=== PATIENT | female | born 1995 | race Caucasian/White ===

== ENCOUNTER 2024-12-13 08:15 | Emergency (ER) | payer OTHER, SELFPAY ==
--- NOTE | 2024-12-13 08:22 | ED_ITS ---
HPI - General Adult General Chief complaint: Abdominal Pain Stated complaint: abd pain tingling in hands Time Seen by Provider: 12/13/24 08:21 Source: patient, RN notes reviewed and old records reviewed Mode of arrival: ambulatory Limitations: no limitations History of Present Illness ED Provider: Lynne [facility] narrative: Patient is a 29-year-old female presenting to the emergency department with complaint of lower abdominal pain which began this morning as well as associated nausea and 1 episode of vomiting. She also complains of tingling to her extremities during her episode of pain. States pain has since resolved. States she feels her symptoms are likely due to menstrual cramps, is expecting her period to start today. Denies any dysuria, frequency or other urinary symptoms. Denies dizziness, lightheadedness, syncope or near syncope. Denies recent fevers. Denies history of abdominal surgeries. Denies any abnormal vaginal discharge or concern for STIs. MD complaint: abdominal pain Onset (ago): hour(s) Related Data Allergies Allergy/AdvReac Type Severity Reaction Status Date / Time No Known Allergies (No Known Allergy Verified 12/13/24 08:26 Allergies*) Review of Systems 2 Review of Systems: As per HPI Yes all other systems are reviewed and are negative Constitutional: Constitutional: Reports as per HPI [facility] Social History Social History Smoked in Last 30 Days: No Advance Directives: No Advance Directives Information Provided: No Do you have a plan to hurt others: No Plan Physical Exam ED Vital Signs: Vital Signs - 24 hr 12/13/24 08:23 12/13/24 08:27 12/13/24 09:39 Temperature 97.4 F Pulse Rate 75 72 Respiratory Rate 17 Blood Pressure 89/50 L 90/50 L 94/51 L Pulse Oximetry 100 Oxygen Delivery Method Room Air 12/13/24 10:44 12/13/24 10:44 12/13/24 10:45 Temperature Pulse Rate 61 74 79 Respiratory Rate Blood Pressure 90/38 L 86/53 L 85/46 L Pulse Oximetry Oxygen Delivery Method BMI result Body Mass Index 20.1 Vital signs have been reviewed and appear to be correct. Blood pressure low. Heart rate normal. Respiratory rate normal. Temperature normal. Oxygen saturation normal. Const General: cooperative, healthy appearing and no acute distress Nutritional Appearance: thin Orientation/consciousness: oriented to person, oriented to place, oriented to time and patient oriented x3 Limitations: no limitations HENMT Head: Yes normocephalic and Yes atraumatic Ears: external ears normal General nose exam: Normal external nose present Face and sinus: Yes face symmetric Mouth: oropharynx normal and moist mucous membranes Throat: Yes uvula midline Eyes Pupils: Equal, round and reactive pupils present Neck Neck: Yes normal visual inspection and Yes supple Resp Effort & Inspection: normal respiratory effort and able to speak in complete sentences Auscultation: clear to auscultation bilaterally Cardio Rate: regular rate Rhythm: regular rhythm Heart sounds: S1 normal heart sound present and S2 normal heart sound present GI Palpation (GI): Soft to palpation and nontender Auscultation: normoactive bowel sounds General: Yes no CVA tenderness Back/Spine/Pelvis Back: no CVA tenderness Skin General skin exam: elasticity normal and turgor normal Neuro General: oriented to person, oriented to place, oriented to time, patient oriented x3, moves all extremities, no focal motor deficits and CN's II-XI intact bilaterally Cranial nerves: Yes Equal, round and reactive pupils present Cognition (Neuro): normal cognition Extrem General: Yes full ROM, Yes no pedal edema and Yes no calf tenderness Psych Mental Status: mental status grossly normal Affect: normal affect Thought process: Normal thought process present Medications Administered Discontinued Medications Generic Name Dose Route Start Last Admin Trade Name John PRN Reason Stop Dose Admin Lactated Ringer's 1,000 mls @ 999 mls/hr 12/13/24 09:30 12/13/24 09:43 Lr IV 12/13/24 10:30 Not Given .Q1H1M [facility] Ketorolac Tromethamine 15 mg 12/13/24 09:33 12/13/24 09:43 Ketorolac Tromethamine 15 Mg/Ml Vial IVPUSH 12/13/24 09:34 Not Given ONCE ONE Ondansetron HCl 4 mg 12/13/24 09:29 12/13/24 09:43 Ondansetron Hcl 4 Mg/2 Ml Vial IVPUSH 12/13/24 09:30 Not Given ONCE ONE Medical Decision Making Medical Decision Making [facility] Narrative: Patient is a 29-year-old female presenting to the emergency department with complaint of lower abdominal pain which began this morning as well as associated nausea and 1 episode of vomiting. On exam patient is awake, A+Ox3, BP low, VS otherwise WNL, afebrile, normal neurological exam without focal deficits, physical exam findings as above. Patient reports that her BPs are typically low, denies any dizziness, lightheadedness, or near syncope. Given reported symptoms and physical exam findings, initial differential includes but is not limited to menstrual cramps, , ectopic. Unlikely ovarian torsion, TOA, appendicitis as pain has since resolved. Patient declining IV fluids, pain or nausea medication at this time. Labs unremarkable, negative HCG. Patient noted to have orthostatic intolerance on orthostatic vital signs. Results were discussed with patient and she continues to decline IV fluids, states she will focus on drinking additional p.o. fluids at home. She continues to deny any dizziness, lightheadedness. Feel she is stable for discharge home at this time. Do not feel abdominal imaging is indicated as patient does not have any abdominal tenderness and pain has resolved. Discussed with patient that her extremity tingling was likely due to hyperventilation related to pain, and patient corroborates that she was hyperventilating at the time. Advised Tylenol and ibuprofen as needed. Return precautions discussed at bedside. Patient verbalized understanding of and agreement with plan. Differential Diagnosis Differential Diagnoses: The differential diagnosis associated with the presentation includes As per [facility] Admission/Observation Consideration of admission/observation: Escalation of care including admission/observation considered Patient would have been admitted to the hospital had their clinical presentation warranted hospital admission. Lab Data [facility] Lab Attestation statement: I reviewed the patient's lab results. as per [facility] 12/13/24 08:50 12/13/24 08:50 Labs: Lab Results 12/13/24 12/13/24 Range/Units 08:50 08:51 WBC 3.9 L (4.8-10.8) X10*3/uL RBC 3.87 L (4.20-5.50) X10*6/uL Hgb 12.3 (12.0-16.0) g/dl Hct 35.0 L (37.0-47.0) % MCV 90.4 (80.0-98.0) fL MCH 31.8 (27.0-33.0) pg MCHC 35.1 H (31.0-35.0) g/dl RDW 12.5 (11.0-16.0) % Plt Count 171 (160-400) X10*3/uL MPV 9.2 L (9.4-12.3) fL Immature Gran % (Auto) 0.3 (0.0-0.4) % Neut % (Auto) 55.6 (45-73) % Lymph % (Auto) 34.9 (20-40) % [place] % (Auto) 5.9 (2-11) % Eos % (Auto) 2.8 (0-4) % Baso % (Auto) 0.5 (0-2) % Lymph # (Auto) 1.4 (1.2-4.9) X10*3/uL [place] # (Auto) 0.2 (0.1-1.2) X10*3/uL Eos # (Auto) 0.1 (0.0-0.4) X10*3/uL Baso # (Auto) 0.0 (0.0-0.2) X10*3/uL Abs Immat Gran (auto) 0.01 (0.00-0.03) X10*3/uL Absolute Neuts (auto) 2.2 (2.0-8.3) x10*3/uL Absolute Nucleated RBC 0.000 (0.0-0.012) X10*3/uL Nucleated RBC % (auto) 0.0 (0.0-0.2) /100WBC Sodium 140 (135-145) mmol/L Potassium 3.8 (3.3-5.1) mmol/L Chloride 110 H (96-108) mmol/L Carbon Dioxide 23 (22-29) mmol/L Anion Gap 11 L (12-20) BUN 10 (9-16) mg/dL Creatinine 0.67 (0.5-1.4) mg/dL Estim Creat Clear Calc 106.9 Estimated GFR > 60 Random Glucose 114 (60-115) mg/dL Calcium 8.7 (8.4-10.2) mg/dL Magnesium 1.9 (1.6-2.6) mg/dL Total Bilirubin 0.5 (0.0-1.0) mg/dL Direct Bilirubin 0.2 (0.0-0.5) mg/dL AST 19 (5-31) U/L ALT 17 (0-31) U/L Alkaline Phosphatase 51 (39-117) U/L Total Protein 6.5 (6.5-8.0) g/dL Albumin 4.5 (3.5-5.0) g/dL Lipase 24 (8-78) U/L Beta HCG, Quant < 2 mIU/mL Urine Color Yellow Urine Appearance Clear Urine pH 7.0 (5.0-9.0) Ur Specific [place] 1.025 (1.005-1.025) Urine Protein Negative (Neg-Trace) mg/dL Urine Glucose (UA) Negative (Negative) mg/dL Urine Ketones 15 (Negative) mg/dL Urine Blood Negative (Negative) Urine Nitrite Negative (Negative) Ur Leukocyte Esterase Negative (Negative) Urine RBC 0-2 (0-2) /HPF Urine WBC 0-5 (0-5) /HPF Ur Squamous Epith Cells 0-2 (0-2) /HPF Calcium Oxalate Crystal Present Urine Bacteria None Seen (None Seen) Hyaline Casts 0-2 (0-2) /LPF External Record Review External record reviewed: Inpatient record, Office record and Outpatient record Discharge Plan Discharge Clinical Impression: Abdominal pain Patient Disposition: Home, Self-Care Instructions: Abdominal Pain (ED), Hypotension (DC) Additional Instructions: You have been evaluated in the emergency department today for abdominal pain. Your evaluation did not show evidence of medical conditions requiring emergent intervention at this time. Your blood pressure was noted to be low in the emergency department and worsened with position changes, likely due to dehydration. We recommend that you drink adequate fluids, especially fluids containing electrolytes over the next few days. If you become dizzy or lightheaded with position changes you should return to the emergency department. Please schedule an appointment with your primary care physician. Return to the emergency department if you experience worsening or uncontrolled pain, fevers 100.4? F or greater, recurrent vomiting, inability to tolerate food or fluids by mouth, bloody stools or vomit, black or tarry stools, or any other concerning symptoms. Print Language: Andorran
[2024-12-13 08:23] VITALS: BP 89/50; PULSE 75; RESP 17; TEMP 36.3; O2SAT 100; BMI 20.1
[2024-12-13 08:27] VITALS: BP 90/50
[2024-12-13 08:54] LABS: MANUAL DIFF FLAG NO
[2024-12-13 08:56] LABS: Hematocrit 35.0 % (37.0-47.0); Hemoglobin 12.3 g/dl (12.0-16.0); Imm Gran Abs Auto 0.01 X10*3/uL (0.00-0.03); Imm Gran Pct Auto 0.3 % (0.0-0.4); Lymphocytes Absolute Auto 1.4 X10*3/uL (1.2-4.9); Mean Corpuscular HGB Conc 35.1 g/dl (31.0-35.0); Mean Corpuscular Hemoglobin 31.8 pg (27.0-33.0); Mean Corpuscular Volume 90.4 fL (80.0-98.0); NRBC Abs Auto 0.000 X10*3/uL (0.0-0.012); NRBC Pct Auto 0.0 /100WBC (0.0-0.2); Platelet Count 171 X10*3/uL (160-400); Red Blood Count 3.87 X10*6/uL (4.20-5.50); White Blood Count 3.9 X10*3/uL (4.8-10.8)
[2024-12-13 08:57] LABS: Appearance Urine Clear; Glucose Urine UA Negative (Negative); PH 7.0 (5.0-9.0); Specific Gravity - Urine 1.025 (1.005-1.025)
[2024-12-13 09:22] LABS: Alanine Aminotransferase 17 U/L (0-31); Albumin Level 4.5 g/dL (3.5-5.0); Alkaline Phosphatase 51 U/L (39-117); Anion Gap 11 (12-20); Aspartate Amino Transferase 19 U/L (5-31); Blood Urea Nitrogen 10 mg/dL (9-16); Calcium 8.7 mg/dL (8.4-10.2); Carbon Dioxide 23 mmol/L (22-29); Chloride 110 mmol/L (96-108); Creatinine Clr Calc Pharmacy 106.9; Estimated Glomerular Filt Rate > 60; Lipase 24 U/L (8-78); Magnesium 1.9 mg/dL (1.6-2.6); Potassium 3.8 mmol/L (3.3-5.1); Sodium 140 mmol/L (135-145); Total Protein 6.5 g/dL (6.5-8.0)
[2024-12-13 09:39] VITALS: BP 94/51; PULSE 72
--- NOTE | 2024-12-13 09:42 | PC.NURSE ---
pt states that she feels better, her abd pain has resolved and the numbness she was feeling in her fingers has also resolved. she is not nauseous. she would not like the IV, fluids, or medications. Recheck BP 94/51. DAVONTE Mcclellan notified who is OK holding IV meds at this time.
[2024-12-13 10:44] VITALS: BP 86/53; BP 90/38; PULSE 61; PULSE 74
[2024-12-13 10:45] VITALS: BP 85/46; PULSE 79
[2024-12-13 10:58] VITALS: BP 92/50; PULSE 79; RESP 16; TEMP 36.4; O2SAT 99
== END 2024-12-13 10:59 | disposition home or self-care (01) ==
PROVIDERS: Emergency Provider Emergency Medicine Emergency Medical Services
DX: R10.9 Unspecified abdominal pain (principal); R20.2 Paresthesia of skin; R11.2 Nausea with vomiting, unspecified; N94.89 Other specified conditions associated with female genital organs and menstrual cycle
CPT/HCPCS: 36415; 80053; 81001; 82248; 83690; 83735; 84702; 85025; 99283; 99284

== ENCOUNTER 2025-01-21 08:38 | Outpatient (AMB) | payer OTHER, SELFPAY ==
--- NOTE | 2025-01-21 08:40 | A.OFFVIS_ITS ---
Intake Visit Reasons: 6 month f/u Allergies No Known Allergies (No Known Allergies*) Allergy (Verified 01/21/25 08:44) Medication List - Last Reconciled 01/21/25 by Cari Bryan CNP hydroxyzine HCl 25 mg PO BEDTIME ibuprofen 400 mg PO Q8H levetiracetam 1,000 mg PO BID sumatriptan succinate take 1 tab at onset of headache; if no relief may repeat 1 tab after at least 2 hrs; max = 4 tabs/24 hr PO HPI Comments Details: She was doing okay. No seizures. She was taking levetiracetam twice a day, no medication side effects. Headaches were not as frequent and she did not try sumatriptan. She would take ibuprofen as needed which usually helped. Headaches would happen in clusters for few days at a time and then she could go weeks without any. No specific triggers. She was having some headaches since 2022. She could get few headaches for a few weeks and then may not have any headaches for few weeks.?Pain was usually behind one eye, pressure type pain. Slight photophobia. No sonophobia, nausea or vomiting. No specific triggers. She was not sure if anyone in her family had headaches. She has had 3 seizures in her life at age 16, 17 and 20. Her last seizure was about 2014 because she had run out of her medication for a day or 2. She's had no auras. No history of head trauma. One cousin has some type of epilepsy. There is no history of substance abuse. She has been on Keppra 1 g twice a day. Her seizure workup at age 16 was apparently normal. Since the summer of 2022 she would do Palate she would frequently get some blurring in left eye and then a headache behind both eyes for 2 hrs. [facility] Medical History (Updated 01/21/25 @ 08:44 by Cari Bryan CNP) Migraine Seizure disorder Review of Systems Const Denies chills, Denies daytime sleepiness, Denies difficulty sleeping, Denies fatigue, Denies fever(s), Denies frequent falls, Reports headache(s), Denies increased appetite, Denies poor appetite, Denies snoring, Denies weakness, Denies weight gain and Denies weight loss Eyes Denies loss of vision ENT Denies vertigo, Denies dizziness, Reports headache(s) and Denies neck pain Card Denies chest pain at rest, Denies chest pain with activity, Denies syncope, Denies leg edema, Denies palpitations, Denies dyspnea and Denies dyspnea on exertion Resp Denies cough, Denies dyspnea, Denies dyspnea on exertion and Denies snoring GI Denies abdominal pain, Denies constipation, Denies heartburn, Denies diarrhea and Denies nausea Denies urinary frequency, Denies urinary incontinence and Denies urinary urgency Musc Denies abnormal gait, Denies back pain, Denies myalgias, Denies arthralgias, Denies neck pain, Denies numbness and Denies tingling Neuro Denies abnormal gait, Denies vertigo, Denies dizziness, Denies syncope, Denies frequent falls, Reports headache(s), Denies lack of coordination, Denies loss of vision, Denies memory loss, Denies numbness, Denies Other visual disturbances, Denies restless legs, Denies seizure-like activity, Denies tingling, Denies paresthesias, Denies tremor(s) and Denies weakness Psych Denies anxiety, Denies depression, Denies auditory hallucinations, Denies memory loss and Denies visual hallucinations Endo Denies fatigue and Denies palpitations Physical Exam Const Other: General Appearance:? normal, in no acute distress. Heart:? S1, S2 normal, no murmurs. Lungs:? clear anteriorly and posteriorly. Musculoskeletal:? normal. Extremities:? no edema. Psych:? alert, oriented, cognitive function intact, cooperative with exam. Neuro Other: Abnormal Neurological Findings:?none.? Mental Status: alert and oriented X 3. Normal attention, orientation, memory, and affect. Cranial Nerves: Pupils are equal, round, and reactive to light. External ocular muscles are intact. Visual gonzalez are full, no ptosis. Face is symmetrical, no facial weakness or droop. Facial sensations are normal. Tongue protrudes in midline. Palate elevates symmetrically. Shoulder shrugging is normal Motor Examination: Normal muscle tone, bulk and strength. No atrophy or fasciculations. No drift of the extended upper extremities. DTR 2+. Plantars are flexor. Sensory Exam: Normal light touch, temperature, pinprick, vibration, and joint- position sensations. Rhomberg sign is absent. Coordination: No ataxia. No titubation. Aswzaf-eg-jozw, lttn-dvut-rsme test, and rapid alternating movements were normal. Gait Exam: Within normal limits. Cerebellar Signs: Kwsfun-kz-oorr and knid-cq-mhji is normal. No dysdiadochokinesia. Extrapyramidal System: No tremor, rigidity with normal facial expressions. No bradykinesia. No bradyphrenia. Normal arm swing and posture. No propulsion or retropulsion. Speech: Normal. No dysphasia or dysarthria. Assessment & Plan Assessment & Plan (1) Seizure disorder: Code(s): G40.909 - Epilepsy, unspecified, not intractable, without status epilepticus Category: Medical Plan: Continue levetiracetam 1000mg 1 tablet twice a day. (2) Migraine: Code(s): G43.909 - Migraine, unspecified, not intractable, without status migrainosus Category: Medical Qualifiers: Migraine type: migraine (< 15 days per month) without aura Status migrainosus presence: without status migrainosus Intractability: not intractable Qualified Code(s): G43.009 - Migraine without aura, not intractable, without status migrainosus Plan: May continue ibuprofen as needed for headaches. She has not tried sumatriptan 50mg 1 tablet as needed for migraine yet. Medications: New levetiracetam 1,000 mg PO BID 180 tabs 3RF 90 days Coding Level of Care Code Est Pt Level 4 (22160) Diagnoses Seizure disorder G40.909 Migraine without aura and without status migrainosus, not intractable G43.009 Migraine type: migraine (< 15 days per month) without aura Status migrainosus presence: without status migrainosus Intractability: not intractable
--- OUTSIDE RECORDS SUMMARY | 2025-01-21 09:59 | XMS_ITS | Encounter Summary ---
Author Organization [facility] Address [address] [place], [place] [id number] Phone Care Team Providers Care Supervisor Assembly Department Name Role Phone Mireya Carrizales MD Primary Care Provider [phone] Encounter Details Date Type Department Care Team (Late st Contact Info) Description 12/20/2016 Conversion Encounter [facility] - [address], [address] [place] [address] Mireya Carrizales MD [address] [place] [address] Social History Tobacco Use Types Packs/Day Years Used Date Smoking Tobacco: Never Assessed Comments Unknown Sex and Gender Information Value Date Recorded Sex Assigned at Not on file Legal Sex Female 10:56 PM EST Gender Identity Not on file Sexual Orientation Not on file documented as of this encounter Plan of Treatment Not on file documented as of this encounter Visit Diagnoses Not on filedocumented in this encounter Care Teams Supervisor Assembly Department Relationship Specialty Start Date End Date Mireya Carrizales MD [address] [place] [address] PCP - General 07/04/16 11/29/20 documented as of this encounter
--- OUTSIDE RECORDS SUMMARY | 2025-01-21 09:59 | XMS_ITS | Clinical Summary ---
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 60 tablet 1 02/16/2017 Active SRONYX 0.1-20 MG-MCG per tabletIndication s:Menorrhagia with regular cycle TAKE 1 TABLET BY MOUTH EVERY DAY 84 tablet 1 02/21/2018 Active Active Problems Patient Care Coordination No te Formatting of this note migh t be different from the original. Adult transition letter ([facility]#3) mailed home 07/24/18. Inactivated. Problem Noted Date Diagnosed Date Epilepsy 09/12/2016 Menorrhagia 09/12/2016 Immunizations Immunization Administration Dates Next Due DTaP 09/08/1999, 7,1995,10/10,1995 HPV, Quadrivalent 03/28/2011,11/15/2010,09/15/19 11 Hep B, ped/adol 02/28/1996,1995,1995 Hib (PRP-T) 09/26/1996, 6,1995,08/14 IPV 09/08/1999 MMR 08/15/2000,09/26/1996 Meningococcal Conj (Menactra) MCV4P 12/05/2012,0 09/14/2010 OPV 1995,1995,1995 Td (adult) (Tenivac), 5 Lf t etanus toxoid, PF, adsorbed 03/08/2017 Tdap 07/04/2019,07/03/2007 Varicella 07/03/2007,07/11/1996 Family History Relation Name Status Comments Maternal Grandfather Mat GFa ther: anemia Maternal Grandmother Mat GMo ther: arthritis, cholesterol or lipids, diabetes, glaucoma Mother Mother: asthma Other 1 anemia Other 2 arthritis, chol esterol or lipids, diabetes, glaucoma Other 3 asthma Other 4 breast cancer Paternal Grandmother Pat GMo ther: breast cancer Social History Tobacco Use Types Packs/Day Years Used Date Smoking Tobacco: Never Assessed Comments Unknown Sex and Gender Information Value Date Recorded Sex Assigned at Not on file Legal Sex Female 10:56 PM EST Gender Identity Not on file Sexual Orientation Not on file Last Filed Vital Signs Vital Sign Reading Time Taken Comments Blood Pressure 105/69 09/12/2016 12:00 AM EDT Pulse 81 09/12/2016 12:00 AM EDT Temperature 36.7 C (98 F) 03/08/2017 1:39 PM EDT Respiratory Rate - - Oxygen Saturation 97% 05/09/2010 12:00 AM EST Inhaled Oxygen Concentration - - Weight 54.2 kg (119 lb 9.6 oz) 09/12/2016 12:00 AM EDT Height 165.7 cm (5' 5.25 ) 09/12/2016 12:00 AM E DT Body Mass Index 19.75 09/12/2016 12:00 AM EDT Plan of Treatment Health Maintenance Due Date Last Done Comments Influenza Vaccines (#1) 2024 COVID-19 Vaccine ( season) 2025 DTaP,Tdap,and Td Vaccines (9 - Td or Tdap) 07/04/2029 07/04/2019, 03/08/2017, 07/03/2007, Additional history exists Hepatitis B Vaccines Completed 02/28/1996, 1995, 1995 HIB Vaccines Completed 09/26/1996, 11/12, 1995, Additional history exists IPV Vaccines Completed 09/08/1999, 11/12, 1995, Additional history exists MMR Vaccines Completed 08/15/2000, 09/26/1996 Varicella Vaccines Completed 07/03/2007, 07/11/1996 HPV Vaccines Completed 03/28/2011, 09/2010, 09/14/2010 Meningococcal Vaccine Completed 12/05/2012, 011 Hepatitis A Vaccines Aged Out No long er eligible based on patient's age to complete this topic Men B Vaccine Aged Out No longer elig ible based on patient's age to complete this topic Pneumococcal Vaccine Aged Out No long er eligible based on patient's age to complete this topic Procedures * Due to [place] [employer] law, this organization might not be sharing sensitive test results. Procedure Name Priority Date/Time Associated Diagnosis Comments CHLAMYDIA TRACHOMATIS, AMPLIFIED Routine 09/13/2016 12:00 AM EDT from Last 3 Months or Most Recently Relevant to Health Maintenance Results * Due to [place] [employer] law, this organization might not be sharing sensitive test results. * Chlamydia trachomatis, Amplified (09/13/2016 12:00 AM EDT) C.TRACHOMATIS PCR Not Detected CONVERTED LABS Comment: Christine Azul 09/12/2016 10:58:00 AM > , labeled and sent to [facility] [place] 09/13/2016 07:35:56 PM > Negative Reason: Received -[facility] Lab Order Special Machine Stitcher 09/13/2016 Narrative CONVERTED LABS - 09/13/2016 12:00 AM EDT Chlamydia trachomatis detection by PCR us Mireya Carrizales MD LAB MICROBIOLOGY - GENERAL ORD ERABLES Final Result CONVERTED LABS from Last 3 Months or Most Recently Relevant to Health Maintenance
--- OUTSIDE RECORDS SUMMARY | 2025-01-21 09:59 | XMS_ITS | Clinical Summary ---
Author Organization [facility] Address [address] [facility] [address] [place] [id number] Phone Care Team Providers Care Acquisitions Librarian Name Role Phone Mireya Carrizales MD Primary Care Provider [phone] Medications levonorgestrel-e thinyl estradiol (ORSYTHIA) 0.1-0.02 mg per tablet 1 tablet Active levETIRAcetam (KEPPRA) 1000 MG tablet Take 1,000 mg by mouth. 02/16/2017 Active Active Problems No known active problems Immunizations Immunization Administration Dates Next Due Tdap 07/04/2019 Family History Medical History Relation Comments Cancer Paternal Grandmother 2 Relation Status Comments Paternal Grandmother 1 Paternal Grandmother 2 Social History Tobacco Use Types Packs/Day Years Used Date Smoking Tobacco: Never Assessed Education Answer Date Recorded Are you interested in more education? Not on ab e 09/08/2022 Are you concerned about learning? Not on file 09/08/2022 No 09/08/2022 No 09/08/2022 Digital Access Answer Date Recorded No 10/09/2022 No 10/09/2022 Reliable internet access at home? Not on file 10/09/2022 Device with a working camera? Not on file Comments Unknown Sex and Gender Information Value Date Recorded Sex Assigned at Not on file Legal Sex Female 12:30 PM EDT Gender Identity Not on file Sexual Orientation Not on file Last Filed Vital Signs Vital Sign Reading Time Taken Comments Blood Pressure 107/72 07/04/2019 6:30 PM EST Pulse 96 07/04/2019 6:30 PM EST Temperature 37.1 C (98.8 F) 07/04/2019 6:30 PM EST Respiratory Rate - - Oxygen Saturation 100% 07/04/2019 6:30 PM EST Inhaled Oxygen Concentration - - Weight 54.4 kg (120 lb) 07/04/2019 6:30 PM EST Height 165.1 cm (5' 5 ) 06/15/2016 9:17 AM EST Body Mass Index 19.97 06/15/2016 9:17 AM EST Plan of Treatment Health Maintenance Due Date Last Done Comments DEPRESSION SCREENING 2007 SMOKING Hx and SMOKELESS TOBACCO SCREENING 2008 HEPATITIS C SCREENING 2013 HIV ONE-TIME SCREENING (18-65 YEARS) 2013 INFLUENZA VACCINE (#1) 2024 COVID-19 VACCINE ( season) 2025 08/21/2020 PAP SMEAR 01/12/2025 01/12/2022 Adult Td,Tdap Booster 07/04/2029 07/04/2019 , 03/08/2017, 07/03/2007 HIB VACCINES Completed 09/26/1996, 11/12, 1995, Additional history exists MENINGOCOCCAL VACCINES (ACWY) Completed 12/05/2012, 09/14/2010 HEPATITIS A VACCINES Aged Out No long er eligible based on patient's age to complete this topic MENINGOCOCCAL VACCINES (B) Aged Out N o longer eligible based on patient's age to complete this topic PNEUMOCOCCAL VACCINES (0-49 years) Aged Out No longer eligible based on patient's age to complete this topic Medical Devices Not on file Procedures Procedure Name Priority Date/Time Associated Diagnosis Comments PAP TEST Routine 01/12/2022 12:00 AM EDT from Last 3 Months or Most Recently Relevant to Health Maintenance Results * Pap Smear (01/12/2022 12:00 AM EDT) 01/12/2022 01/13/2022 9:4 8 AM EDT Narrative SEE NARRATIVE - 01/19/2022 4:30 PM EDT [address] [address] Pole Framer: Cathy Mckeon MD SENIOR SUPPORT ENGINEER Cytology Report FINAL DIAGNOSIS A. PAP SMEAR (SUREPATH) CE: SPECIMEN ADEQUACY: Satisfactory for evaluation; transformation zone present. INTERPRETATION: NEGATIVE FOR INTRAEPITHELIAL LESION OR MALIGNANCY. Reactive changes. Electronically Signed Out By: KRISTYN Sofia MD(ASCP) By his/her signature above, the pathologist listed as making the Final Diagnosis certifies that he/she has personally reviewed this case and confirmed or corrected the diagnosis. The Pap test is a screening test primarily for squamous cancers and precursors and has associated false-negative and false-positive results. New technologies such as liquid-based preparations may decrease but will not eliminate all false-negative results. Regular sampling and follow-up of unexplained clinical signs and symptoms are recommended to minimize false negative results. CLINICAL HISTORY Date of Last Menstrual Period: Not Provided Menstrual History: Unknown Treatment History: Hormone Therapy Other Clinical Conditions: Screening Pap SPECIMEN SOURCE A: PAP SMEAR (SUREPATH) CE Patient Name: MARIBEL RUIZ : 1995 (Age: 26) Sex: F Institution: [facility] Location: [facility] Date of Collection: 01/12/2022 Date of Reported: 01/19/2022 16:30 Results to: MIKO Ferro us Unknown Unknown CYTOLOGY ORDERABLES Final Res ult SEE NARRATIVE from Last 3 Months or Most Recently Relevant to Health Maintenance Insurance [facility] [id number] [place] [address] [facility] [id number] [place] [address] [facility] [id number] [place] [address] [facility] Care Teams Acquisitions Librarian Relationship Specialty Start Date End Date Mireya Carrizales MD [address] [place] [address] [address] [place] [address] [email or web address] PCP - General Pediatrics 12/18/16 Additional Source Comments The information contained in this document represents components of the legal health record. It is not the complete legal health record.[facility]
--- OUTSIDE RECORDS SUMMARY | 2025-01-21 09:59 | XMS_ITS | Encounter Summary ---
Author Organization [facility] Address [address] [address] Phone Care Team Providers Care Detail Supervisor Name Role Phone Mireya Carrizales MD Primary Care Provider [phone] Cassidy Amin BUSINESS OBJECTS ANALYST Unavailable [phone] Mireya Carrizales MD Unavailable [phone] Abi Turner BUSINESS OBJECTS ANALYST Unavailable [phone] Reason for Referral * Occupational Therapy (Within 2 weeks) - Closed Specialty Diagnoses / Procedures Referred By Massimo easley Referred To Contact Occupational Therapy Diagnoses Laceration of blood vessel of right index finger, subsequent encounter Right Index Finger Laceration Procedures Treatment Duke Hu PA-C Phone: tel: fax: [email or web address] [address] [address] Phone: tel: Referral ID Status Reason Start Date Expiration Date Visits Re quested Visits Authorized [id number] Closed 03/16/2017 03/16/2018 49 [phone] Encounter Details Date Type Department Care Team (Latest Contact Info) Description 03/12/2017 Transcribe Orders [facility] [address] [place] [phone] Duke Hu PA-C [address] [place] [address] Orthopedics [facility] Sports Medicine, [place] [address] [email or web address] Laceration of blood vessel of right index finger, subsequent encounter (Primary Dx) Social History Tobacco Use Types Packs/Day Years Used Date Smoking Tobacco: Never Assessed Comments Unknown Sex and Gender Information Value Date Recorded Sex Assigned at Not on file Legal Sex Female 12:30 PM EDT Gender Identity Not on file Sexual Orientation Not on file documented as of this encounter Plan of Treatment Scheduled Referrals Name Type Priority Associated Diagnoses Order Schedule Ambulatory referral to [facility] Occupational Therapy Outpatient Referral Routine Laceration of blood vessel of right index finger, subsequent encounter Ordered: 03/16/2017 documented as of this encounter Visit Diagnoses Diagnosis Laceration of blood vessel of right index finger, subsequent encounter- Primary documented in this encounter Care Teams Detail Supervisor Relationship Specialty Start Date End Date Mireya Carrizales MD [address] [place] [id number] PCP - General Pediatrics 12/18/16 Cassidy Amin NP [address] [place] [id number] Historical LMR Provider 02/28/17 2 Mireya Carrizales MD [address] [place] [id number] Historical LMR Provider 02/28/17 05/21/21 Abi Turner NP [address] [place] [address] Historical LMR Provider 02/28/17 05/21/21 documented as of this encounter Additional Source Comments The information contained in this document represents components of the legal health record. It is not the complete legal health record.[facility]
== END 2025-01-21 08:50 | disposition home or self-care (01) ==
LOC: HO.HSM 08:38
PROVIDERS: PCP Pediatrics; Referring Provider Pediatrics; Visit Provider Registered Nurse
DX: G40.909 Epilepsy, unspecified, not intractable, without status epilepticus (principal); G43.009 Migraine without aura, not intractable, without status migrainosus
CPT/HCPCS: 99214